=== PATIENT | female | born 1990 | race Caucasian/White ===

== ENCOUNTER 2017-11-27 16:38 | Emergency (ER) | payer OTHER ==
[2017-11-27 17:12] VITALS: BP 109/60
--- NOTE | 2017-11-27 17:37 | UC ---
Complaint Female HPI - HPI Summary HPI Summary: 2 day history of dysuria and frequency, without fever, nausea or vomiting. No back pain. Type 1 diabetes with increase in BG to >180, uses insulin pump. Last UTI was about 2 years ago, has used macrodantin in the past with good results. Gross hematuria x 2 days ago, has used azo without symptoms resolving. - History Of Current Complaint Chief Complaint: UCGU Stated Complaint: UTI SYMPTOMS Time Seen by Provider: 11/27/17 17:09 Hx Obtained From: Patient Hx Last Menstrual Period: 11/17/17 Onset/Duration: Gradual Onset, Lasting Days - 2 Timing: Intermittent Severity Initially: Moderate Severity Currently: Moderate Pain Intensity: 3 Character: Dull Aggravating Factor(s): Urination Alleviating Factor(s): Nothing Associated Signs And Symptoms: Positive: Negative Related Hx: Similar Episode/Dx as: - UTI - Risk Factors Ectopic Risk Factor: Negative Ovarian Torsion Risk Factor: Negative - Allergies/Home Medications Allergies/Adverse Reactions: Allergies Allergy/AdvReac Type Severity Reaction Status Date / Time No Known Allergies Allergy Verified 11/27/17 17:06 Home Medications: Home Medications Insulin Aspart [Novolog] 75 units DAILY 11/27/17 [History Confirmed 11/27/17] PMH/Surg Hx/FS Hx/Imm Hx Endocrine History: Diabetes - Surgical History Surgical History: None - Family History Known Family History: Positive: Other - celiac disease in female relatives - Social History Occupation: Student - at [employer] in [employer] Lives: With Family - 2 children Alcohol Use: Occasionally Substance Use Type: None Smoking Status (MU): Never Smoked Tobacco - Immunization History Most Recent Tetanus Shot: UTD Review of Systems Constitutional: Other - blood sugars running a little high. Genitourinary: Dysuria, Hematuria, Frequency Is Patient Immunocompromised?: No All Other Systems Reviewed And Are Negative: Yes Physical Exam Triage Information Reviewed: Yes Appearance: Well-Appearing, No Pain Distress Vital Signs: Initial Vital Signs Temp 99.4 F 11/27/17 17:08 Pulse 79 11/27/17 17:08 Resp 17 11/27/17 17:08 BP 109/60 11/27/17 17:08 Pulse Ox 100 11/27/17 17:08 Neck exam: Normal Neck: Positive: Supple, Nontender, No Lymphadenopathy Respiratory: Positive: Lungs clear, Normal breath sounds Cardiovascular: Positive: RRR, No Murmur Abdomen Description: Positive: No Organomegaly, Soft. Negative: CVA Tenderness (R), CVA Tenderness (L), Distended Musculoskeletal Exam: Normal Neurological Exam: Normal Psychological Exam: Normal Skin Exam: Normal Complaint Female Dx - Course Course Of Treatment: urine culture; macrodantin for suspected UTI. - Differential Dx/Diagnosis Differential Diagnosis/HQI/PQRI: Urinary Tract Infection Provider Diagnoses: UTI Discharge - Sign-Out/Discharge Documenting (check all that apply): Patient Departure All imaging exams completed and their final reports reviewed: No Studies - Discharge Plan Condition: Stable Disposition: HOME Prescriptions: Nitrofurantoin Monohyd/M-Cryst [Macrobid 100 mg Capsule] 100 mg PO BID #14 cap Patient Education Materials: Urinary Tract Infection in Women (ED) Referrals: No Primary Care Phys,NOPCP [Primary Care Provider] - Additional Instructions: Urine culture has been sent and will be reported late 11/29 or early 11/30. Begin course of macrodantin, and you will be called if a change of antibiotic is needed. Ensure high intake of fluids. - Billing Disposition and Condition Condition: STABLE Disposition: Home
--- NOTE | 2017-11-30 08:16 | UC ---
- Progress Note Progress Note: Final urine culture reviewed-sensitive for macrobid, patient on macrobid. No change. Discharge - Sign-Out/Discharge Documenting (check all that apply): Post-Discharge Follow Up All imaging exams completed and their final reports reviewed: No Studies - Discharge Plan Condition: Stable Disposition: HOME Prescriptions: Nitrofurantoin Monohyd/M-Cryst [Macrobid 100 mg Capsule] 100 mg PO BID #14 cap Patient Education Materials: Urinary Tract Infection in Women (ED) Referrals: No Primary Care Phys,NOPCP [Primary Care Provider] - Additional Instructions: Urine culture has been sent and will be reported late 11/29 or early 11/30. Begin course of macrodantin, and you will be called if a change of antibiotic is needed. Ensure high intake of fluids. - Billing Disposition and Condition Condition: STABLE Disposition: Home
== END 2017-11-27 17:47 | disposition home or self-care (01) ==
LOC: UCCORT 16:38
DX: N39.0 Urinary tract infection, site not specified (principal); B96.20 Unspecified Escherichia coli [E. coli] as the cause of diseases classified elsewhere; E10.9 Type 1 diabetes mellitus without complications; Z96.41 Presence of insulin pump (external) (internal); Z79.4 Long term (current) use of insulin
CPT/HCPCS: 87077; 87086; 87186; 99202; G0463

== ENCOUNTER → 2017-11-27 16:39 | Emergency (ER) | payer SELFPAY ==
[~2017-11-27 16:39] MED LIST: PPD test dose* 5 TU/0.1 ML TEST (*USE PPD ORDER SET*) ONE
--- NOTE | 2017-11-28 07:10 | UC ---
Discharge - Sign-Out/Discharge Documenting (check all that apply): Post-Discharge Follow Up All imaging exams completed and their final reports reviewed: No Studies - Discharge Plan Referrals: No Primary Care Phys,NOPCP [Primary Care Provider] -
== END | disposition home or self-care (01) ==
LOC: OH 16:39
DX: R76.11 Nonspecific reaction to tuberculin skin test without active tuberculosis (principal)